=== PATIENT | female | born 1995 | race Hispanic/Latino ===

== ENCOUNTER 2016-09-24 11:25 | Inpatient (IN) | payer OTHER ==
[~2016-09-24] VITALS: Ht 152.4 cm; Wt 74.4 kg
[2016-09-24] MEDS ORDERED: Lactated Ringer's 1,000 ML IV PRN (12:11)
[2016-09-24] MEDS ORDERED: Carboprost 250 mCg/mL Inj IM PRN (12:15)
[2016-09-24] MEDS ORDERED: Oxytocin 10 Unit/mL Inj IM PRN (12:15)
[2016-09-24] MEDS ORDERED: Methylergonovine 0.2 mg/mL Inj IM PRN (12:15)
[2016-09-24] MEDS ORDERED: Oxytocin 30 Units/500 mL LR 30 UNITS in IV Premix 1 EACH IV PRN ×2 (12:15→21:45)
[2016-09-24] MEDS ORDERED: Sodium Chloride LOK Flush 10 mL Syringe IVFLUSH PRN (12:15)
[2016-09-24] MEDS ORDERED: Hemorrhage Kit, Post Partum XX ONE (12:15)
[2016-09-24] MEDS ORDERED: Lactated Ringer's 1,000 ML IV SCH ×2 (13:38→21:44)
[2016-09-24] MEDS ORDERED: Lactated Ringer's 500 ML IV ONE (13:38)
[2016-09-24] MEDS ORDERED: Ondansetron 2 mg/mL 2 mL Inj IVPUSH PRN (13:40)
[2016-09-24] MEDS ORDERED: Atropine 1 mg/10 mL (Code) Syringe IVPUSH PRN (13:40)
[2016-09-24] MEDS ORDERED: EPHEDrine Sulfate 50 mg/mL Inj IVPUSH PRN (13:40)
[2016-09-24] MEDS ORDERED: fentaNYL 2 mCg/mL-Bupiv 0.125% 100 ML EPIDURAL SCH (13:40)
[2016-09-24 15:09] LABS: Mean Corpuscular Hemoglobin 26.4 pg (27.0-35.0); Mean Corpuscular Volume 75.9 fL (81-100)
[2016-09-24] MEDS ORDERED: Sodium Chloride LOK Flush 10 mL Syringe IVFLUSH SCH (16:30)
[2016-09-24] MEDS ORDERED: fentaNYL-PF 50 mCg/mL 2 mL Inj IVPUSH PRN (16:55)
--- NOTE | 2016-09-24 17:55 | HP ---
[address] [address] HISTORY AND PHYSICAL PATIENT: STANLEY MENDOSA : 1995 MR#: [id number] ADMIT: 09/24/2016 JOB ID: [id number] IDENTIFYING DATA/CHIEF COMPLAINT: The patient is a 21-year-old who presents with spontaneous with PROM at term. HISTORY OF PRESENT ILLNESS: The patient is at 40-0/7 weeks by a 13-week (unreliable LMP). Presents with gush of fluid at 10:20 a.m. on the day of admission. Has otherwise been feeling well, without any bleeding. No contractions (though she started to have some contractions since arrival at the [facility]). Normal movements. She did have an episode of mumps parotitis in late July but that resolved without sequelae. She is more than four weeks past the usual contagious period for that illness. She has felt well, without headaches or fevers. No sore throat or cough. ALLERGIES: No known drug allergies. MEDICATIONS: Hydrocortisone cream for skin rash, using sparingly, and vitamins 1 daily. CURRENT HISTORY: Dating as above. Blood type O-positive. RPR nonreactive, rubella immune. Hepatitis B surface antigen negative. HIV negative. Gonorrhea chlamydia negative. Diabetes screen normal. Glucola normal at 126. GBS negative. Did have bacteriuria with E. coli in early 2nd trimester treated with subsequent test of cure OK. Mumps was confirmed with mumps viral PCR July (patient already on the 2nd or 3rd day of symptoms at that time). PAST MEDICAL AND SURGICAL HISTORY: Other than the , she has been healthy. She has no history of prior hospitalizations or surgeries. No history of asthma or lung problems. No history of bleeding problems. SOCIAL ISSUES: From the [facility]. She is supported by adoptive mother and her adoptive mother's sister, as significant social support. Also has other family members including a brother in the area. She does not smoke. She does not drink. Does not use alcohol. No history of domestic violence note in the outpatient chart. OBJECTIVE: Vital signs are stable. She is in no acute distress. Pleasant, cooperative. Cardiovascular: Regular rate and rhythm. Normal S1, S2. No murmurs, gallops, rubs. Lungs clear to auscultation bilaterally, without crackles, rhonchi, or wheezes. Abdomen is gravid, nontender. Striae present (skin diagnosis was for PUPP or consistent with that). Fetus is vertex (confirmed on ultrasound). Estimated weight 7 pounds 12 ounces. strip has been a category one since arrival, with baseline in the 130s to 140s. Good accelerations. No decels. Moderate variability. She is starting to have contractions. She has had contractions q. 3-4 minutes. These are mild to moderate intensity. ADMISSION LABORATORY: Show white count 8.0, hematocrit 36.8, platelets 230. ASSESSMENT AND PLAN: A 21-year-old at 40-0/7 with pre-labor rupture of membranes, who has started to have some contractions. At this point she has not had a cervical exam. We will be doing that at 8-10 hours after rupture and make decisions about Pitocin augmentation or not at that time. I discussed pain control options with the patient. Discussed risks benefits of potential induction augmentation including the possible increased risk of in a primiparous patient, trying to balance the risk versus decreasing risk of chorioamnionitis. Anticipate routine management. Anticipate vaginal delivery at this point. ADDENDUM: 7:30 PM Ongoing contraction, Strip Cat 1 (120-130, moderate variability with accels, no decels). Cervical exam: 4 cm/80%/-1. A/P: , term, now 9 hr s/p PROM with good early labor, cont to follow, consider augmentation if failing to continue progress MTDD
--- NOTE | 2016-09-25 05:47 | PCM.HPANE ---
Patient Data Date of Service: Sep 25, 2016 Surgeon Admitting Provider:Jagjit Upton MD Attending Provider:Jagjit Upton MD Primary Care Physician:Wandy Winslow MD Other Provider: Reason for Visit Term Early Labor TERM EARLY LABOR Ht/WT & BMI Body Mass Index Allergies Coded Allergies: No Known Allergies (Unverified , 04/25/16) Diabetes History Hx Diabetes?: No MRSA MRSA: No Medications Hypertension Medication: No Home Meds Incl Beta Uriel: No History History of ENT Problems?: No Hx of Heart Problems?: No Cardiovascular History: Denies:: Congestive Heart Failure Hypertension Hx of Respiratory Problem?: No Respiratory History: Denies:: Tuberculosis Hx Neurologic Problems?: No Hx of GI Problems?: No Hx Musculoskeletal Problems?: No Hx Surgeries?: No Hx Any Other Health Problems?: No Hx Diabetes: No Hx Alcohol Use: NoHx Substance Use: No Smoking Status: Unknown if Ever Smoker Have You Smoked inLast 12 mo: No Stop/Bang Treated for Sleep Apnea?: No Do You Have a CPAP Machine?: No S-Snoring: Do You Snore Loudly: No T-Tired: feel tired, fatigued: No O-Obsered: Observed not breath: No P-Blood Pressure: treated: No B- Body Mass Index > 35 kg/m2: No A- Age over 50: No N- Neck Large Circumference: No G- Gender Male: No GENO Risk Assessment: Low Risk, <3 Yes Risk Assessment Category Category 1A: Patient has history of documented sleep apnea, and HAS NOT received any narcotic, sedative or anesthesia administration during this stay. Category 1B: Patient has history of documented sleep apnea, and HAS received any narcotic , sedative or anesthesia administration during this stay Category 2: Patient has SUSPECTED Obstructive Sleep Apnea, and HAS received any narcotic , sedative or anesthesia administration during this stay. Category 3: Patient has SUSPECTED Obstructive Sleep Apnea and HAS NOT received narcotic, sedative or anesthesia administration during this stay. Category 4: Outpatient in Procedural Areas with known sleep apnea or who screen positive for High Risk via the STOP/BANG questionnaire. Exam Exam General Appearance: Alert, Oriented X3, Cooperative, No Acute Distress HEENT/AIRWAY: MP 2 Lungs: Clear to Auscultation, Normal Air Movement Heart: Exam Unremarkable, Regular Rate/Rhythm, No Murmurs/Rubs/Gallops Meds/Labs/Diagnostics Labs Test 09/24/16 14:50 White Blood Count 8.0th/mm3 (3.8-10.1) Red Blood Count 4.85mil/mm3 (3.90-5.20) Hemoglobin 12.8g/dL (12.0-15.6) Hematocrit 36.8% (35.0-46.0) Mean Corpuscular Volume 75.9fL (81-100) Mean Corpuscular Hemoglobin 26.4pg (27.0-35.0) Mean Corpuscular Hemoglobin Concent 34.8% (32.0-37.0) Red Cell Distribution Width 14.7% (12.3-15.4) Platelet Count 230bil/L (150-400) Plan Impression Patient chart reviewed, patient interviewed and anesthestic plan with risks, benefits, and alternatives discussed, and informed consent obtained. ASA Physical Status: ASA2 Mod Systemic Disease Anesthetic Plan: Epidural Bene/Risks/Altern/Consents: Yes HP Complete Prior to Induction: Yes Kyle Braxton MD Sep 25, 2016 05:46
[2016-09-25] MEDS ORDERED: Lactated Ringer's 1,000 ML IV SCH (10:13)
[2016-09-25] MEDS ORDERED: Methylergonovine 0.2 mg/mL Inj IM PRN (10:15)
[2016-09-25] MEDS ORDERED: Hemorrhage Kit, Post Partum XX ONE (10:15)
[2016-09-25] MEDS ORDERED: Witch Hazel-Glycerin Pads TOPICAL PRN (10:15)
[2016-09-25] MEDS ORDERED: HYDROcodone-APAP 5-325 mg Tablet PO PRN (10:15)
[2016-09-25] MEDS ORDERED: Oxytocin 30 Units/500 mL LR 30 UNITS in IV Premix 1 EACH IV PRN (10:15)
[2016-09-25] MEDS ORDERED: LANOlin HPA 7 Gm Ointment TOPICAL PRN (10:15)
[2016-09-25] MEDS ORDERED: Benzocaine (Dermoplast) 20% 60 Gm Spray TOPICAL PRN (10:15)
[2016-09-25] MEDS ORDERED: Oxytocin 10 Unit/mL Inj IM PRN (10:15)
[2016-09-25] MEDS ORDERED: Carboprost 250 mCg/mL Inj IM PRN (10:15)
--- NOTE | 2016-09-25 14:10 | OP ---
[address] [address] OPERATIVE REPORT PATIENT: STANLEY MENDOSA : 1995 MR#: [id number] ADMIT: 09/24/2016 JOB ID: [id number] DATE OF SURGERY: SURGEON: Jagjit Upton MD PREOPERATIVE DIAGNOSIS(ES): POSTOPERATIVE DIAGNOSIS(ES): DELIVERY NOTE: Stage 1: For details of admission, please see H and P by this physician. The patient presented after PROM, approximately 21 hours prior to delivery. Initially, not in labor and observed without vaginal exam. Began laboring. Initial vaginal exam showed her to be at 4 cm, approximately 13 hours prior to delivery. Decision made to augment labor after no progression on recheck. Good progression subsequently. Patient quite uncomfortable as reached 7-8 cm of dilation and actually began to grunt and push. Discussed with the patient need for pain control to avoid pushing against incomplete cervix. Decision made to try epidural and that was placed at 8 cm and she was much more comfortable after that. Category 2 strip throughout much of the last few hours of 1st stage, with intermittent lates, mostly earlies. No recurrent lates. maintained moderate variability, usually in the 120s to 130s. Patient did have two large decelerations, though recovered nicely from those with oxygen and position changes. Stage 2: Patient complete and pushing 35 minutes before delivery. Good pushing effort. Excellent pushing effort. Tolerated well by . Delivery of baby boy, 7 and 9, weighed approximately 6 pounds 3 ounces, over a shallow second-degree midline laceration. delivered in MARIANA position. Had two nuchal cords as well as a bandolier cord so no attempt was made to reduce these on the perineum. We simply delivered through cords and then passed to maternal abdomen. Cord clamped in a delayed fashion, approximately 90 seconds after delivery. Stage 3: Pitocin increased after delivery of , delivery of placenta approximately 7 minutes after delivery of infant after cord drainage. Placenta intact, three-vessel cord. EBL 200 mL. Repair of laceration performed in the usual fashion with a running 3-0 Vicryl with good tissue approximation. Mother and are both doing well, recovering at time of this dictation. [facility]
[2016-09-26 07:05] LABS: Mean Corpuscular Hemoglobin 26.3 pg (27.0-35.0); Mean Corpuscular Volume 75.8 fL (81-100)
--- NOTE | 2016-09-26 07:07 | PCM.DC.OB ---
Obstetrical Discharge Summary Date of Service Sep 26, 2016 Date of hospital admission Sep 24, 2016 at 12:25 Date of Discharge: Sep 26, 2016 Providers Admitting Physician: Jagjit Upton MD Primary Care Physician: Wandy Winslow MD Attending Physician: Jagjit Upton MD Diagnosis at Time of Discharge day #1 status post normal vaginal delivery Problems: No Active Prescriptions or Reported Meds Susan Price DO Sep 26, 2016 07:07
--- NOTE | 2016-09-26 11:08 | PCM.DC.OB ---
Obstetrical Discharge Summary Date of Service Sep 26, 2016 Date of hospital admission Sep 24, 2016 at 12:25 Date of Discharge: Sep 26, 2016 Providers Admitting Physician: Jagjit Upton MD Primary Care Physician: Wandy Winslow MD Attending Physician: Jagjit Upton MD Diagnosis at Time of Discharge Normal vaginal delivery at term Problems: Brief History and Physical: see H&P note and delivery note by Dr. Upton for details. Pt was admitted on 06/02, and had a normal vaginal delivery yesterday AM, did well on day 1 today. Hospital Course: see H&P note and delivery note by Dr. Upton for details. Pt was admitted on 06/02, and had a normal vaginal delivery yesterday AM, did well on day 1 today. Discharge Medications: (1) Colace 100 mg bid prn constipation; (2) ibuprofen 600 mg q 6 hr prn pain. Both were sent to [facility]. Disposition home with Follow-up plan f/u at [facility] with Dr. Rockwell for check in 4 to 6 wk, sooner as needed. Discharge Diet: No restrictions, Heart Healthy Discharge Activity-General: Pelvic Rest for 6 weeks Aggie Rockwell MD Sep 26, 2016 11:08
--- NOTE | 2016-09-26 11:16 | PCM.DIOB ---
Obstetrical Disch Instruction Date of Service: Sep 26, 2016 Dates of Hospitalization Date of Hospital Admission Sep 24, 2016 at 12:25 Providers Admitting Physician: Jagjit Upton MD Primary Care Physician: Wandy Winslow MD Attending Physician: Jagjit Upton MD Discharge Diagnosis Discharge Diagnosis normal vaginal delivery at term Problems: Diet Discharge Diet: No restrictions, Heart Healthy Activity Discharge Activity-General: Pelvic Rest for 6 weeks Dressing and Incisional Care Hygiene: May shower Follow Up Plan Follow Up Plan f/u at Sep with Dr. Rockwell for check in 4 to 6 wk, sooner as needed. Call your provider for: Fever or Chills, Shortness of breath, Heavy vaginal bleeding, Heavy bleeding, Epigastric pain, Excessive constipation, Vaginal discomfort, Red painful breasts Aggie Rockwell MD Sep 26, 2016 11:16
--- NOTE | 2016-09-26 11:19 | PCM.PNOBPP ---
Subjective Date of Service Sep 26, 2016 Post : Spontaneous Vaginal Delivery Lochia: Normal Pain Management: PO pain meds Gastrointestinal: Good Appetite Postop Activity: Ambulating Independently Group B Strep Results: Negative Blood Type: O RH Type: Positive Labs Laboratory Tests 09/26/16 06:55: White Blood Count 12.4, Red Blood Count 3.96, Hemoglobin 10.4, Hematocrit 30.0, Mean Corpuscular Volume 75.8, Mean Corpuscular Hemoglobin 26.3, Mean Corpuscular Hemoglobin Concent 34.7, Red Cell Distribution Width 14.6, Platelet Count 199 Exam Vital Signs Vital Signs: VS reviewed, stable Exam Abdomen: Fundus firm : Voiding without difficulty Extremities: No cords, Normal pulses, No tenderness/swelling Lungs: Clear to Auscultation Heart: Regular Rate/Rhythm, Normal S1, Normal S2, No Murmurs/Rubs/Gallops General: Alert, Oriented X3, No Acute Distress OB Post Assessment/Plan Assessment doing well on day 1. Post plan: Continue routine post care, Anticipate discharge home today Aggie Rockwell MD Sep 26, 2016 11:19
[2016-09-26 12:45] VITALS: BP 111/69; PULSE 73; RESP 17
== END 2016-09-26 13:44 | disposition home or self-care (01) | DRG 775 ==
LOC: FBCO 11:25 → FBC 12:25
PROVIDERS: ADMIT Family Medicine; ATTEND Family Medicine
PROC: 10E0XZZ Delivery of Products of Conception, External Approach (ICD-10-PCS; principal; 2016-09-25)
PROC: 0KQM0ZZ Repair Perineum Muscle, Open Approach (ICD-10-PCS; 2016-09-25)
DX: O70.1 Second degree perineal laceration during delivery (principal); Z37.0 Single live birth; O42.02 Full-term premature rupture of membranes, onset of labor within 24 hours of rupture; Z3A.40 40 weeks gestation of pregnancy; O69.82X0 Labor and delivery complicated by other cord entanglement, without compression, not applicable or unspecified